=== PATIENT | female | born 1995 | race African-American/Black ===

== ENCOUNTER 2022-07-16 10:14 | Day surgery (SDC) | payer OTHER ==
[2022-07-14 11:58] LABS: COVID AG,FIA SOURCE NASAL SWAB
[~2022-07-16] VITALS: Ht 160 cm; Wt 51.4 kg
[~2022-07-16 10:14] MED LIST: SODIUM CHLORIDE 0.9% 1,000 ML IV ONE; SODIUM CHLORIDE 0.9% 1,000 ML ONE
[2022-07-16] MEDS ORDERED: PROPOFOL 1% 20 ML VIAL IVP ONE (10:15)
[2022-07-16] MEDS ORDERED: LIDOCAINE/PF 2% 5 ML VIAL IM ONE (10:15)
[2022-07-16] MEDS ORDERED: DiphenhydrAMINE HCL 50 MG/ML VIAL ONE (12:47)
[2022-07-16] MEDS ORDERED: MIDAZOLAM HCL 2 MG/2 ML VIAL ONE (12:47)
[2022-07-16] MEDS ORDERED: FentaNYL CITRATE PF 100 MCG/2 ML VIAL ONE (12:47)
== END 2022-07-16 14:45 | disposition home or self-care (01) ==
LOC: SURGERY 10:14
PROVIDERS: ATTEND Internal Medicine Gastroenterology
DX: R10.13 Epigastric pain (principal); R63.4 Abnormal weight loss; Z72.89 Other problems related to lifestyle; F12.90 Cannabis use, unspecified, uncomplicated; Z98.890 Other specified postprocedural states; Z20.822 Contact with and (suspected) exposure to COVID-19
CPT/HCPCS: 87426; 84703; 43239; 88305; 88312; 88313; C9803; C1769; J2704; J1200; J3490; J7030; J2250; J3010